=== PATIENT | male | born 1945 | race Caucasian/White ===

== ENCOUNTER → 2016-09-08 | Outpatient (CLI) | payer MEDICARE, BC ==
[~2016-09-08] MED LIST: /ACETCOD2T PO; ACTO45TA15 PO; AMLO5TAB2 PO; ATOR1TAB21 PO; AVOD0.5C PO; CEPH25SS PO; METF500T PO; METRCRM EXT; SYNT112T2 PO; TUMS500C PO; TYLE325T5 PO
== END ==
LOC: M ONCR 10:45
PROVIDERS: ATTEND Radiology Radiation Oncology
DX: C07 Malignant neoplasm of parotid gland (principal)

== ENCOUNTER → 2016-12-21 | Outpatient (REF) | payer MEDICARE, BC | LOC: M LAB REF 12:57 | PROVIDERS: ATTEND Nurse Practitioner Family | DX: L08.9 Local infection of the skin and subcutaneous tissue, unspecified (principal) ==

== ENCOUNTER → 2019-07-12 | Outpatient (CLI) | payer MEDICARE, BC ==
[~2019-07-12] MED LIST changes: -/ACETCOD2T PO; +ACET1TAB15 PO; +METR0.00 EXT; -METRCRM EXT
[2019-07-12 11:42] LABS: BLOOD UREA NITROGEN 19 MG/DL (7-18); CREATININE FOR GFR 1.21 MG/DL (0.70-1.30); GLOMERULAR FILTRATION RATE > 60.0 (>42)
== END ==
LOC: M LAB 10:31
PROVIDERS: ATTEND Physician Assistant Medical
DX: G50.1 Atypical facial pain (principal)

== ENCOUNTER → 2021-01-07 | Outpatient (CLI) | payer SELFPAY | LOC: M LABSMTC 11:01 | PROVIDERS: ATTEND Pediatrics | DX: Z11.52 Encounter for screening for COVID-19 (principal) ==

== ENCOUNTER → 2021-04-08 | Outpatient (CLI) | payer MEDICARE, BC ==
--- NOTE | 2021-04-08 14:55 | REP ---
INDICATION: PAIN IN RIGHT SHOULDER. COMPARISON: None. TECHNIQUE: Three views of the right shoulder were performed. FINDINGS: The acromioclavicular and glenohumeral relationships are within normal limits. There is no acute fracture or destructive osseous lesion. IMPRESSION: Within normal limits <Electronically signed by Yeyo Rosenbaum > 04/08/21 [id number]
== END ==
LOC: M RAD 14:06
PROVIDERS: ATTEND Family Medicine
DX: M25.511 Pain in right shoulder (principal)

== ENCOUNTER → 2023-06-24 | Outpatient (CLI) | payer MEDICARE, BC ==
[2023-06-26 12:07] LABS: PSA TOTAL 1.7 ng/mL (0.0-4.0)
== END ==
LOC: M LAB 06:55
PROVIDERS: ATTEND Urology
DX: N40.0 Benign prostatic hyperplasia without lower urinary tract symptoms (principal); R97.20 Elevated prostate specific antigen [PSA]

== ENCOUNTER → 2023-07-01 | Outpatient (CLI) | payer MEDICARE, BC | LOC: M RAD 07:32 | PROVIDERS: ATTEND Family Medicine | DX: Z12.2 Encounter for screening for malignant neoplasm of respiratory organs (principal); F17.211 Nicotine dependence, cigarettes, in remission ==

== ENCOUNTER → 2023-07-19 | Outpatient (CLI) | payer MEDICARE, BC ==
[2023-07-19 14:38] LABS: BLOOD UREA NITROGEN 24 MG/DL (9-23); CREATININE FOR GFR 1.06 MG/DL (0.70-1.30); GLOMERULAR FILTRATION RATE > 60.0 (>42)
== END ==
LOC: M LAB 13:14
PROVIDERS: ATTEND Physician Assistant Medical
DX: R07.0 Pain in throat (principal); Z85.89 Personal history of malignant neoplasm of other organs and systems

== ENCOUNTER 2023-08-09 07:39 | Day surgery (SDC) | payer MEDICARE, BC ==
[~2023-08-09] VITALS: Ht 167.6 cm; Wt 73.4 kg
[~2023-08-09 07:39] MED LIST changes: +ACET32TAB PO; +AMLO1TAB24 PO; +BUPR-71 PO; +CIAL5TAB PO; +METF10004 PO; +METR0.7526 EXT; +NS 1,000 ML IV ONE; +OMEP40CA4 PO; +SYNT100T PO
[2023-08-09] MEDS ORDERED: propofoL 200 MG/20 ML VIAL As Ordered ONE (08:29)
[2023-08-09] MEDS ORDERED: LIDOCAINE 2% 100MG/5ML SDV (FOR ANES.) As Ordered ONE (08:29)
[2023-08-09] MEDS ORDERED: PHENYLephrine 500MCG 5ML (100MCG/ML) SYRINGE As Ordered ONE (08:37)
[2023-08-09 08:59] VITALS: TEMP 96.1
[2023-08-09 09:15] VITALS: BP 100/62; O2SAT 97
== END 2023-08-09 09:26 | disposition home or self-care (01) ==
LOC: M OPP 07:39
PROVIDERS: ATTEND Internal Medicine Gastroenterology
DX: Z12.11 Encounter for screening for malignant neoplasm of colon (principal); Z80.0 Family history of malignant neoplasm of digestive organs; D12.5 Benign neoplasm of sigmoid colon; D17.5 Benign lipomatous neoplasm of intra-abdominal organs; K64.8 Other hemorrhoids; K57.30 Diverticulosis of large intestine without perforation or abscess without bleeding; E11.9 Type 2 diabetes mellitus without complications; Z87.891 Personal history of nicotine dependence; Z79.02 Long term (current) use of antithrombotics/antiplatelets; Z79.2 Long term (current) use of antibiotics; Z79.52 Long term (current) use of systemic steroids; Z79.84 Long term (current) use of oral hypoglycemic drugs; Z79.890 Hormone replacement therapy; Z79.899 Other long term (current) drug therapy
CPT/HCPCS: 45385; 88305; J2371

== ENCOUNTER → 2023-12-28 | Outpatient (REF) | payer MEDICARE, BC ==
[~2023-12-28] MED LIST changes: -NS 1,000 ML IV ONE
[2023-12-28 15:41] LABS: PERCENT SATURATION 26.6 % (19.7-50.0)
[2023-12-28 15:46] LABS: FERRITIN 31.3 NG/ML (10.5-307.3)
== END ==
LOC: M LAB REF 13:26
PROVIDERS: ATTEND Family Medicine
DX: Z01.818 Encounter for other preprocedural examination (principal); M25.562 Pain in left knee; M17.12 Unilateral primary osteoarthritis, left knee

== ENCOUNTER → 2024-01-09 | Outpatient (CLI) | payer MEDICARE, BC | LOC: M PLAIMG 06:58 | PROVIDERS: ATTEND Nurse Practitioner Family | DX: M54.50 Low back pain, unspecified (principal); M47.816 Spondylosis without myelopathy or radiculopathy, lumbar region; M47.817 Spondylosis without myelopathy or radiculopathy, lumbosacral region ==

== ENCOUNTER → 2024-06-25 | Outpatient (CLI) | payer MEDICARE, BC | LOC: M PLALAB 11:03 | PROVIDERS: ATTEND Physician Assistant | DX: R97.20 Elevated prostate specific antigen [PSA] (principal) ==

== ENCOUNTER → 2024-07-31 | Outpatient (CLI) | payer MEDICARE, BC | LOC: M WUC 09:31 | PROVIDERS: ATTEND Family Medicine | DX: R10.9 Unspecified abdominal pain (principal) ==

== ENCOUNTER → 2024-10-12 | Outpatient (REF) | payer MEDICARE, BC | LOC: M LAB REF 12:18 | PROVIDERS: ATTEND Family Medicine | DX: R14.0 Abdominal distension (gaseous) (principal) ==

== ENCOUNTER → 2024-10-25 | Outpatient (CLI) | payer MEDICARE, BC ==
[~2024-10-25] MED LIST changes: +ISOVUE-370 76% 100ML VIAL As Ordered ONE
== END ==
LOC: M RAD 13:53
PROVIDERS: ATTEND Family Medicine
DX: R74.8 Abnormal levels of other serum enzymes (principal)
CPT/HCPCS: 74160; Q9967

== ENCOUNTER → 2025-02-26 | Outpatient (REF) | payer MEDICARE, BC ==
[~2025-02-26] MED LIST changes: -ISOVUE-370 76% 100ML VIAL As Ordered ONE
== END ==
LOC: M LAB REF 13:31
PROVIDERS: ATTEND Family Medicine
DX: R14.0 Abdominal distension (gaseous) (principal)

== ENCOUNTER → 2025-03-20 | Outpatient (CLI) | payer MEDICARE, BC | LOC: M WUC 13:23 | PROVIDERS: ATTEND Nurse Practitioner Family | DX: M54.50 Low back pain, unspecified (principal); M47.816 Spondylosis without myelopathy or radiculopathy, lumbar region ==

== ENCOUNTER → 2025-06-18 | Outpatient (CLI) | payer MEDICARE, BC | LOC: M WUC 12:56 | PROVIDERS: ATTEND Physician Assistant | DX: R97.20 Elevated prostate specific antigen [PSA] (principal) ==

== ENCOUNTER → 2025-08-07 | Outpatient (REF) | payer MEDICARE, BC | LOC: M LAB REF 15:09 | PROVIDERS: ATTEND Family Medicine | DX: R19.7 Diarrhea, unspecified (principal); Z85.00 Personal history of malignant neoplasm of unspecified digestive organ ==